=== PATIENT | female | born 1975 | race Caucasian/White ===

== ENCOUNTER 2018-06-06 07:07 | Observation (INO) | payer SELFPAY ==
--- NOTE | 2018-05-28 15:26 | GHP ---
[f rep st] PREOP HISTORY AND PHYSICAL DATE OF ADMISSION: 06/06/2018 HISTORY OF PRESENT ILLNESS: The patient is a 43-year-old female with a left scapular pain and arm pa in. She said the pain began in yoga class a few months ago. She saw a chiropractor, and the followi ng morning, she awoke with tingling in her left 1st and 2nd fingers. She also has worsening pain in the left scapula that wraps around the axillary region and pain in the left triceps. Ice and sitting in a reclined position will improve her pain. Moving around will worsen her pain. She denies weakn ess in the arm and denies any issues with fine motor skills, balance difficulties, or loss of bowel o r bladder control. She has been taking ibuprofen and has tried oral steroids. She has also tried an epidural steroid injection without significant relief. PAST MEDICAL HISTORY: Fibromyalgia, Graves disease. PAST SURGICAL HISTORY: Appendectomy, cholecystectomy. FAMILY HISTORY: No pertinent neurosurgical family history. SOCIAL HISTORY: The patient is with 3 children. She admits to tobacco use in the past and q uit 4 years ago. Drinks alcohol socially. REVIEW OF SYSTEMS: Negative except for what is mentioned in the HPI. ALLERGIES: No known drug allergies. CURRENT HOME MEDICATIONS: Tramadol, trazodone, levothyroxine seen, ibuprofen, Neurontin. RESULTS: MRI of the cervical spine completed on April 09, 2018: 5 x 6 mm herniated disk at C6-7 o n the left causing mass effect on the exiting C7 nerve root and possibly C8 nerve root within the lat eral recess. Small central disk protrusion/disk herniations at T2-3 and T3-4 without significant spi nal stenosis or nerve root impingement. ASSESSMENT AND PLAN: In summary, the patient is a 43-year-old female with ongoing neck and left arm pain. Her MRI of the cervical spine reveals a left C6-7 disk herniation. The patient has attempted conservative treatment with oral steroids, NSAIDs, physical therapy and injections without long-term relief. We recommend proceeding with surgical intervention at this point with an anterior cervical d iskectomy and fusion at C6-7. The risks, benefits, and procedure were discussed in detail with the p atient and the patient has agreed to proceed. She has signed consent and all questions and concerns have been addressed and answered. /[id number]/MODL
[2018-06-06] MEDS ORDERED: ceFAZolin 2 GM/DEXTROSE 100 ML IV ONE (07:19)
[2018-06-06] MEDS ORDERED: ACETAMINOPHEN 500 MG TAB PO ONE (07:19)
[2018-06-06] MEDS ORDERED: GABAPENTIN 300 MG CAP PO ONE (07:19)
[2018-06-06] MEDS ORDERED: LR 1,000 ML IV ONE (07:44)
[2018-06-06] MEDS ORDERED: MIDAZOLAM 2 MG/2 ML VIAL IVP ONE (08:40)
[2018-06-06] MEDS ORDERED: SURGIFLO MATRIX KIT WITH THROMBIN 8 ML TP ONE (08:44)
[2018-06-06] MEDS ORDERED: CHLORHEXIDINE GLUC HIBICLENS 118 ML BTL TP ONE (08:44)
[2018-06-06] MEDS ORDERED: BUPIVACAINE/EPI 0.25% 30 ML SDV ONE (08:44)
[2018-06-06] MEDS ORDERED: THROMBIN (BOVINE) 5,000 UNIT VIAL TP ONE (08:44)
--- NOTE | 2018-06-06 08:44 | PDHPUP ---
History & Physical Update H&P update statement: This history and physical update is based on an assessment of the patient which was completed after admission or registration (within 24 hours), but prior to the surgery/procedure. H&P update: H&P reviewed & patient examined, no change in patient's condition since H&P completed
[2018-06-06] MEDS ORDERED: BACITRACIN 50,000 UNITS/10 ML SYR IRR ONE (08:45)
--- NOTE | 2018-06-06 08:46 | PDANEPAE ---
ANE History of Present Illness cervical spinal stenosis s/f ACDF ANE Past Medical History - Cardiovascular History Hx Hypertension: No Hx Arrhythmias: No Hx Chest Pain: No Hx Coronary Artery / Peripheral Vascular Disease: No Hx CHF / Valvular Disease: No Hx Palpitations: No - Pulmonary History Hx COPD: No Hx Asthma/Reactive Airway Disease: No Hx Recent Upper Respiratory Infection: No Hx Oxygen in Use at Home: No Hx Sleep Apnea: No Sleep Apnea Screening Result - Last Documented: Negative - Neurologic History Hx Cerebrovascular Accident: No Hx Seizures: No Hx Dementia: No Neurologic History Comment: numbness down left arm currently. herniated disc - Endocrine History Hx Diabetes: No Hypothyroid: Yes Endocrine History Comment: graves disease- radiation to shrink thyroid - Renal History Hx Renal Disorders: No - Liver History Hx Hepatic Disorders: No - Neurological & Psychiatric Hx Hx Neurological and Psychiatric Disorders: Yes Neurological / Psychiatric History Comment: anxiety. depression - Cancer History Hx Cancer: No - Congenital Disorder History Hx Congenital Disorders: No - GI History Hx Gastrointestinal Disorders: No - Other Health History Other Health History: wears contacts. acne. fibromyalgia - Chronic Pain History Chronic Pain: Yes (fibromyalgia pain) - Surgical History Prior Surgeries: appy. ashley SOUSA Review of Systems Review of Systems: - Exercise capacity METS (RN): 4 METS ANE Patient History - Allergies Allergies/Adverse Reactions: No Allergies [NKDA] Allergy (Verified 05/19/18 15:32) - Home Medications Home medications: home medication list seen and reviewed Home Medications: Herbals/Supplements -Info Only 1 ea PO DAILY 05/14/18 [Last Taken 05/30/18] Ibuprofen [Motrin (*)] 800 mg PO Q4-6PRN PRN 05/14/18 [Last Taken 05/30/18] Levothyroxine [Synthroid 150 mcg (*)] 150 mcg PO DAILY06 05/14/18 [Last Taken ] traMADol [Ultram 50 mg (*)] 50 mg PO Q8 PRN 05/14/18 [Last Taken 06/06/18 06:00] traZODone [traZODONE 100MG (*)] 100 mg PO HS 05/14/18 [Last Taken 06/05/18] - NPO status NPO Status: no food or drink >8 hours NPO Since - Liquids (Date): 06/05/18 NPO Since - Solids (Date): 06/05/18 - Anes Hx Anes Hx: no prior problems - Smoking Hx Smoking Status: Former smoker - Alcohol Use Alcohol Use: None - Family Anes Hx Family Anes Hx: none Family Hx Anesthesia Complications: none ANE Labs/Vital Signs - Vital Signs Blood Pressure: 128/88 Heart Rate: 84 Respiratory Rate: 15 O2 Sat (%): 95 Height: 167.64 cm Weight: 77.111 kg ANE Physical Exam - Airway Neck exam: decreased ROM Mallampati Score: Class 2 Mouth exam: normal dental/mouth exam - Pulmonary Pulmonary: no respiratory distress - Cardiovascular Cardiovascular: regular rate and rhythym - ASA Status ASA Status: II ANE Anesthesia Plan Anesthesia Plan: general endotracheal anesthesia
[2018-06-06] MEDS ORDERED: fentaNYL 100 MCG/2 ML INJ ONE ×2 (09:01→11:10)
[2018-06-06] MEDS ORDERED: PROPOFOL/EMULSION 500 MG/50 ML BOTTLE IV ONE (09:01)
[2018-06-06] MEDS ORDERED: REMIFENTANIL HCL 1 MG VIAL ONE ×2 (09:01→09:02)
[2018-06-06] MEDS ORDERED: LIDOCAINE 2% 100 MG/5 ML SYR ONE (09:02)
[2018-06-06] MEDS ORDERED: DEXAMETHASONE 4 MG/ML VIAL ONE ×2 (09:02)
[2018-06-06] MEDS ORDERED: ONDANSETRON 4 MG/2 ML VIAL ONE (09:02)
[2018-06-06] MEDS ORDERED: NALOXONE HCL 0.4 MG/ML INJ IVP PRN (10:40)
[2018-06-06] MEDS ORDERED: PROMETHAZINE HCL 25 MG/ML INJ IVP PRN (10:40)
[2018-06-06] MEDS ORDERED: HYDROCODONE/APAP 5/325 TAB PO PRN (10:40)
[2018-06-06] MEDS ORDERED: oxyCODONE IR 5 MG TAB PO PRN (10:40)
[2018-06-06] MEDS ORDERED: ACETAMINOPHEN 500 MG TAB PO PRN (10:40)
[2018-06-06] MEDS ORDERED: ALBUTEROL 3 ML DEYVIAL IH PRN (10:40)
[2018-06-06] MEDS ORDERED: MEPERIDINE 25 MG/0.5 ML AMP IVP PRN (10:40)
[2018-06-06] MEDS ORDERED: DEXAMETHASONE 4 MG/ML VIAL IVP PRN (10:40)
[2018-06-06] MEDS ORDERED: METOCLOPRAMIDE 10 MG/2 ML VIAL IVP PRN (10:40)
[2018-06-06] MEDS ORDERED: LR 500 ML IV PRN (10:40)
[2018-06-06] MEDS ORDERED: PHENYLEPHRINE HCL 100 MCG/ML SYR IVP PRN (10:40)
[2018-06-06] MEDS ORDERED: LABETALOL HCL 5 MG/ML 20 ML MDV IVP PRN (10:40)
[2018-06-06] MEDS ORDERED: ONDANSETRON 4 MG/2 ML VIAL IVP PRN ×2 (10:40→11:03)
[2018-06-06] MEDS ORDERED: traZODone 100 MG TAB PO PRN (11:02)
[2018-06-06] MEDS ORDERED: POLYETHYLENE GLYCOL 3350 17 GM PKT PO PRN (11:03)
[2018-06-06] MEDS ORDERED: BISACODYL 10 MG SUPP PR PRN (11:03)
[2018-06-06] MEDS ORDERED: diphenhydrAMINE 25 MG CAP PO PRN (11:03)
[2018-06-06] MEDS ORDERED: LACTULOSE 20 GM/30 ML UDCUP PO PRN (11:03)
[2018-06-06] MEDS ORDERED: MAGNESIUM HYDROXIDE 30 ML UDCUP PO PRN (11:03)
[2018-06-06] MEDS: fentaNYL 100 MCG/2 ML INJ IVP PRN ×2 (11:10→11:15)
[2018-06-06] MEDS ORDERED: NS 1,000 ML IV SCH (11:15)
--- NOTE | 2018-06-06 11:17 | POSTOPPROG ---
Post Op Note Date of Operation: 06/06/18 Surgeon: Bridgette Colon Group Captain: Es Villafana PA-C Anesthesiologist: Dr. Clark Anesthesia: GET(General Endotracheal) Pre-op Diagnosis: Cervical disc herniation Post-op Diagnosis: Cervical disc herniation Procedure: Anterior cervical discectomy and fusion at C6/7 Inf/Abcess present in the surg proc area at time of surgery?: No Depth: Deep Incisional (Fascial) EBL: Minimal Drains: Ismael Flores Plan Plan: 43 yo female s/p ACDF C6/7 - neuro checks - pain control - soft collar, may remove for showering - LATA drain x 1 - postop C-spine x-rays pending - PT/OT - plan for home tomorrow Exam Awake. Alert Following commands Strength full at 5/5 Incision with dressing c/d/i
[2018-06-06] MEDS ORDERED: HYDROmorphONE/DILAUDID 1 MG/ML INJ ONE (11:19)
[2018-06-06] MEDS: HYDROmorphONE/DILAUDID 1 MG/ML INJ IVP PRN ×3 (11:22→11:48)
--- NOTE | 2018-06-06 11:32 | GOP ---
[f rep st] OPERATIVE REPORT DATE OF OPERATION: 06/06/2018 SURGEON: Bridgette Colon DO NEUROSURGEON: Bridgette Colon DO. BESSEMER CONVERTER OPERATOR: JHONY Hernandez. PREOPERATIVE DIAGNOSIS: Cervical radiculopathy secondary to herniated disk. POSTOPERATIVE DIAGNOSIS: Cervical radiculopathy secondary to herniated disk. PROCEDURE PERFORMED: C6-7 anterior cervical diskectomy and fusion with LDR ESAU-C 7 x 12 x 14 mm maddie t, autograft microscope. FINDINGS: SPECIMENS: None. ESTIMATED BLOOD LOSS: 25 mL. INDICATIONS: This is a 43-year-old female with a disk herniation causing a severe C6 radiculopathy w ho has failed conservative management. She has elected to move forward with ACDF. She was identifie d, consented. Sites were marked. DESCRIPTION OF PROCEDURE: Brought to the operating room. Anesthetized under general endotracheal tub e anesthesia. Pre and post positioning baselines remained stable. She had an interscapular roll alex elena. Head was placed in a Yee horseshoe to a neutral position. Incision site was marked, tapin g a blunt needle to the skin. She was then prepped and draped in the usual sterile fashion. Incisio n was anesthetized with 0.5% Marcaine with epinephrine. Incision was made with a 10 blade, dissectin g through the platysma in a horizontal fashion with DeBakey's and Migdalia. We then moved along the medi al border of the SCM, retracting the trachea and esophagus medially. The carotid artery was palpated and retracted laterally with the handheld Cloward coming down onto the prevertebral fascia which was cleared with a Kittner and placed a bayoneted spinal needle. We were at the C6-7 level. We measure d and placed a Shadow-Line retractor. We placed 6 [place] pins and verified they were in the appropri ate position. Placed the patient under distraction, brought in the microscope. Using a high-speed d rill, removed the disk and cartilaginous endplates from the superior and inferior endplates of C6 and C7 coming down on the posterior longitudinal ligament. We opened the posterior longitudinal ligamen t with a micro upgoing curette, and then a large fragment of soft disk was removed from the left late ral recess and foramen using a micropituitary. We then used the to remove disk and osteop hyte from the superior and inferior endplates and out bilateral lateral foramina until foraminal fat was visualized and the foramina were well decompressed. We then harvested autograft and measured an 8 x 14 x 12 mm LDR ESAU-C graft, tamped it into place, removed the [place] pins, tamped the long wing s uperiorly with the 1 impactor, verified it was in the appropriate position. Cold welded with the 1; cold welded with the 2 impactor. Placed the long wing inferior and tamped it into place with the 1 im pactor. Cold welded with the 1 impactor; cold welded with the 2 impactor. Took a final x-ray verify ing the hardware was in good position. Final motors were stable. We then copiously irrigated with o marin a liter of gentamicin-infused saline. Meticulous hemostasis was obtained with bipolar and then t rocar to drain out inferiorly placed in the prevertebral space, inspecting the benoit of the incision on our way out for meticulous hemostasis. Closed the platysma with 2-0 Vicryl pop-offs, subcutaneous layer with 3-0 Vicryl pop-offs. The skin was closed with 4-0 running Monocryl and Steri-Strips. Wo und was dressed with gauze and a Tegaderm. Drain was sutured in with a 2-0 Vicryl pop-off, placed to bulb suction. Patient tolerated procedure well. No complications. FLUIDS: 1100 mL crystalloid. URINE OUTPUT: None. DRAINS: None. COMPLICATIONS: None. /[id number]/MODL
[2018-06-06] MEDS ORDERED: HYDROCODONE/APAP 5/325 TAB ONE (12:22)
--- NOTE | 2018-06-06 12:47 | POSTANESTH ---
Post Anesthetic Evaluation Cardiovascular Status: Normal, Stable Respiratory Status: Normal, Stable, Tx Decrease in SpO2 Level of Consciousness/Mental Status: Can Participate in Eval Pain Control: Adequate, Prn Tx Ordered Nausea/Vomiting Control: Adequate, Prn Tx Ordered Complications Possibly Related to Anesthesia: None Noted
[2018-06-06] MEDS: ceFAZolin 2 GM/DEXTROSE 100 ML IV SCH (16:31)
[2018-06-06] MEDS: METHOCARBAMOL 750 MG TAB PO PRN (18:00)
[2018-06-06] MEDS: ACETAMINOPHEN 500 MG TAB PO SCH ×2 (18:00→22:18)
[2018-06-06] MEDS: oxyCODONE IR 5 MG TAB PO PRN (20:20)
[2018-06-06] MEDS: SENNOSIDES/DOCUSATE SODIUM TAB PO SCH (20:20)
[2018-06-06] MEDS: ONDANSETRON DISINTEGRATING 4 MG TAB PO PRN (20:20)
[2018-06-07] MEDS: oxyCODONE IR 5 MG TAB PO PRN ×4 (01:22→20:12)
[2018-06-07] MEDS: ceFAZolin 2 GM/DEXTROSE 100 ML IV SCH (01:22)
[2018-06-07] MEDS: ONDANSETRON DISINTEGRATING 4 MG TAB PO PRN ×2 (01:25→10:35)
[2018-06-07] MEDS: LEVOTHYROXINE 150 MCG TAB PO SCH (05:30)
[2018-06-07] MEDS: ACETAMINOPHEN 500 MG TAB PO SCH ×2 (05:42→09:33)
--- NOTE | 2018-06-07 07:43 | NEUSURGPN ---
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 Alert Following commands Strength full at 5/5 Incision with dressing c/d/i - Physician Discussed Patient with : Darlene Neurosurgery Physical Exam - Vitals, I&O, Labs I and O 06/06/18 06/07/18 06/08/18 05:59 05:59 05:59 Intake Total 1140 Output Total 1100 30 Balance 40 -30 Weight 77.111 kg Intake: Oral (ml) 1040 IV Infused (ml) 100 ceFAZolin 2 GM/DEXTROSE 100 100 ml @ 200 mls/hr IV Q8H KATY Rx#:[id number] Output: Urine (ml) 1100 Toilet 1100 LATA Drain Output (ml) 30 Anterior Neck Ismael 30 Flores Other: Intake Quantity Yes Sufficient Number of Voids Toilet 1 Vital Signs Temp Pulse Resp BP Pulse Ox 36.8 C 87 16 117/74 97 06/07/18 04:00 06/07/18 04:00 06/07/18 04:00 06/07/18 04:00 06/07/18 04:00 ICD10 Worksheet Patient Problems: Problems Problem Status Onset Cervical stenosis of spine Acute - ICD10 Problem Qualifiers (1) Cervical stenosis of spine
[2018-06-07] MEDS: METHOCARBAMOL 750 MG TAB PO PRN ×2 (09:32→14:56)
[2018-06-07] MEDS: SENNOSIDES/DOCUSATE SODIUM TAB PO SCH ×2 (09:33→20:12)
[2018-06-07] MEDS: HYDROmorphONE/DILAUDID 1 MG/ML INJ IVP PRN ×2 (11:16→15:02)
--- NOTE | 2018-06-07 14:07 | ASMTCMCOM ---
CM Note CM Note Notes: CM reviewed pt's chart for d/c planning. Pt is a 43 y/o female with on-going neck pain and left arm michelet; her MRI revealed a left C6-7 disk herniation. She underwent surgery for this yesterday; she is expected to d/c home today. No CM needs are anticipated; CM will follow for changes. D/C Plan: Anticipate independent. Date Signed: 06/07/2018 02:07 PM Electronically Signed By:Malinda Maher
[2018-06-07] MEDS ORDERED: PROMETHAZINE HCL 25 MG/ML INJ IVP PRN (14:22)
[2018-06-07] MEDS ORDERED: ACET/CAFFEINE/BUTA FIORICET 1 EACH TAB PO PRN (14:38)
[2018-06-07] MEDS ORDERED: ACETAMINOPHEN 500 MG TAB PO PRN (15:00)
[2018-06-08] MEDS: LEVOTHYROXINE 150 MCG TAB PO SCH (04:24)
[2018-06-08] MEDS: METHOCARBAMOL 750 MG TAB PO PRN ×2 (04:24→10:47)
[2018-06-08] MEDS: oxyCODONE IR 5 MG TAB PO PRN ×2 (04:24→09:01)
--- NOTE | 2018-06-08 07:08 | NEUSURGPN ---
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 Objective: Awake. Alert Following commands Strength full at 5/5 Neck soft, supple no edema Incision with dressing c/d/i - Physician Discussed Patient with : Darlene Neurosurgery Physical Exam - Vitals, I&O, Labs I and O 06/07/18 06/08/18 06/09/18 05:59 05:59 05:59 Intake Total 1140 400 Output Total 1100 540 Balance 40 -140 Weight 77.111 kg Intake: Oral (ml) 1040 400 IV Infused (ml) 100 ceFAZolin 2 GM/DEXTROSE 100 100 ml @ 200 mls/hr IV Q8H KATY Rx#:[id number] Output: Urine (ml) 1100 500 Toilet 1100 500 LATA Drain Output (ml) 40 Anterior Neck Ismael 40 Flores Other: Intake Quantity Yes Yes Sufficient Number of Voids Toilet 1 Vital Signs Temp Pulse Resp BP Pulse Ox 37.1 C 80 16 124/77 H 92 06/08/18 00:00 06/08/18 00:00 06/08/18 00:00 06/08/18 00:00 06/08/18 00:00 ICD10 Worksheet Patient Problems: Problems Problem Status Onset Cervical stenosis of spine Acute - ICD10 Problem Qualifiers (1) Cervical stenosis of spine
[2018-06-08 07:35] VITALS: BP 116/83
[2018-06-08] MEDS: SENNOSIDES/DOCUSATE SODIUM TAB PO SCH (07:36)
--- NOTE | 2018-06-08 09:21 | ASMTLACE ---
SAUNDRA Length of stay for Answers: 2 days current admission Comorbidities - select Answers: Other Notes: Graves disease all that apply # of Emergency department Answers: 0 visits in the last 6 months Score: 3 Date Signed: 06/08/2018 09:20 AM Electronically Signed By:Rosemarie Tapia RN
--- NOTE | 2018-06-08 09:22 | ASMTDCNOTE ---
Case Management Discharge Discharge Order Complete? Answers: Yes Patient to Obtain Answers: via Family Medications Transportation Arranged Answers: Family/Friends Family Notified Answers: Yes Discharge Comments Notes: Patient medically cleared for independent discharge to home. CM available should needs arise. Date Signed: 06/08/2018 09:22 AM Electronically Signed By:Rosemarie Tapia RN
[2018-06-09] MEDS ORDERED: ENOXAPARIN 40 MG/0.4 ML SYR SC SCH (09:00)
== END 2018-06-08 11:04 | disposition home or self-care (01) ==
LOC: F3N 07:07 → INTOOBSV 07:07 → F3N 15:30
PROVIDERS: ADMIT Neurological Surgery; ATTEND Neurological Surgery
PROC: 01N10ZZ Release Cervical Nerve, Open Approach (ICD-10-PCS; principal; 2018-06-06 09:15)
PROC: 0RG10A0 Fusion of Cervical Vertebral Joint with Interbody Fusion Device, Anterior Approach, Anterior Column, Open Approach (ICD-10-PCS; principal; 2018-06-06 09:15)
PROC: 4A10X4G Monitoring of Central Nervous Electrical Activity, Intraoperative, External Approach (ICD-10-PCS; principal; 2018-06-06 09:15)
DX: M50.123 Cervical disc disorder at C6-C7 level with radiculopathy (principal); R11.0 Nausea; G43.909 Migraine, unspecified, not intractable, without status migrainosus; M79.7 Fibromyalgia; F41.9 Anxiety disorder, unspecified; F32.9 Major depressive disorder, single episode, unspecified; Z87.891 Personal history of nicotine dependence
CPT/HCPCS: 92526-GN; 92610-GN; 97161-GP; 97165-GO; C1713; G0378; J0690; J1100; J1170; J2001; J2250; J2405; J2550; J2704; J3010